=== PATIENT | male | born 1990 | race African-American/Black ===

== ENCOUNTER 2017-09-04 12:03 | Emergency (ER) | payer BC ==
[~2017-09-04] VITALS: Ht 170.2 cm; Wt 69.0 kg
[2017-09-04 12:15] VITALS: BP 122/81
== END 2017-09-04 15:33 | disposition home or self-care (01) ==
LOC: ER 13:25
DX: J06.9 Acute upper respiratory infection, unspecified (principal); J84.9 Interstitial pulmonary disease, unspecified; R03.0 Elevated blood-pressure reading, without diagnosis of hypertension; Z87.01 Personal history of pneumonia (recurrent)
CPT/HCPCS: 71010; 99283

== ENCOUNTER 2017-10-06 14:40 | Emergency (ER) | payer OTHER, BC ==
[~2017-10-06] VITALS: Ht 170.2 cm; Wt 64.0 kg
[2017-10-06] MEDS ORDERED: IBUPROFEN 800MG TABLET PO ONE (15:00)
[2017-10-06] MEDS: PENICILLIN V POTASSIUM 250MG TABLET PO SCH ×4 (16:42→19:11)
[2017-10-06] MEDS ORDERED: SODIUM CHLORIDE 0.9% 1000ML BAG (SEPSIS BOLUS) IV ONE (18:00)
[2017-10-06 18:24] LABS: BASOPHILS % 0.4 % (0.0-2.0); EOSINOPHILS % 0.2 % (0.0-5.0); HEMATOCRIT. 44.2 % (42.0-52.0); HEMOGLOBIN. 14.7 g/dL (14.0-18.0); LYMPHOCYTES % 11.6 % (20.0-50.0); MEAN CORPUSCULAR HEMOGLOBIN 31.2 pg (28.0-32.0); MEAN CORPUSCULAR VOLUME 93.9 fL (80.0-94.0); MEAN PLATELET VOLUME 8.7 fl (7.4-10.4); MONOCYTES % 13.4 % (2.0-8.0); NEUTROPHILS % 74.4 % (40.0-76.0); PLATELET 195 x1000/uL (130-400); RED BLOOD CELL COUNT 4.71 mill/uL (4.7-6.1); RED CELL DISTRIBUTION WIDTH 13.1 % (11.6-14.6)
[2017-10-06 18:28] LABS: INR 1.4; PROTHROMBIN TIME 14.5 sec (9.4-11.6)
[2017-10-06 18:30] LABS: CHLORIDE 98 mEq/L (98-107)
[2017-10-06 18:40] LABS: CARBON DIOXIDE 25 mEq/L (21-32)
[2017-10-06 20:42] VITALS: BP 119/68
== END 2017-10-06 20:43 | disposition home or self-care (01) ==
LOC: ER 15:37 → CANBEDREQ 20:55
DX: J18.9 Pneumonia, unspecified organism (principal); R00.0 Tachycardia, unspecified; J02.9 Acute pharyngitis, unspecified; D72.829 Elevated white blood cell count, unspecified; J45.909 Unspecified asthma, uncomplicated
CPT/HCPCS: 36415; 71045; 80053; 83605; 85025; 85610; 87040; 87070; 87430; 87804; 93005; 96360; 96361; 99285; J7030; Z7610

== ENCOUNTER 2017-10-18 13:58 | Emergency (ER) | payer OTHER, BC ==
[~2017-10-18] VITALS: Ht 170.2 cm; Wt 64.0 kg
[2017-10-18] MEDS ORDERED: METHYLPREDNISOLONE SOD SUCC 125 MG/2 ML VIAL IM ONE (16:30)
[2017-10-18] MEDS ORDERED: IPRATROPIUM/ALBUTEROL 0.5-3(2.5)MG/3ML NEB HHN ONE (16:30)
[2017-10-18] MEDS ORDERED: KETOROLAC 60MG/2ML VIAL IM ONE (16:30)
[2017-10-18 20:02] VITALS: BP 135/80
== END 2017-10-18 20:54 | disposition home or self-care (01) ==
LOC: ER 13:58
DX: J98.01 Acute bronchospasm (principal); Z87.01 Personal history of pneumonia (recurrent); J45.909 Unspecified asthma, uncomplicated
CPT/HCPCS: 71045; 94640; 99283; J1885; J2930; J7620

== ENCOUNTER 2017-11-04 10:22 | Emergency (ER) | payer OTHER, BC ==
[~2017-11-04] VITALS: Ht 170.2 cm; Wt 64.0 kg
[2017-11-04 11:20] VITALS: BP 122/86
== END 2017-11-04 16:10 | disposition left against medical advice (07) ==
LOC: ER 11:44
DX: J02.9 Acute pharyngitis, unspecified (principal); Z53.21 Procedure and treatment not carried out due to patient leaving prior to being seen by health care provider

== ENCOUNTER 2017-11-08 16:24 | Emergency (ER) | payer OTHER, BC ==
[~2017-11-08] VITALS: Ht 167.6 cm; Wt 68.0 kg
[2017-11-08 16:57] VITALS: BP 114/70
== END 2017-11-08 20:35 | disposition left against medical advice (07) ==
LOC: ER 16:24
DX: Z53.21 Procedure and treatment not carried out due to patient leaving prior to being seen by health care provider (principal)